=== PATIENT | female | born 1940 | race Caucasian/White ===

== ENCOUNTER 2023-07-24 07:34 | Inpatient (IN) | payer MEDICARE, OTHER ==
[~2023-07-24] VITALS: Ht 172.7 cm; Wt 86.3 kg
[2023-07-24 08:03] LABS: BASO # 0.1 K/mm3 (0.0-0.2); BASO % 0.8 % (0.0-2.0); EOS % 0.5 % (0.0-4.0); GRAN # 3.6 K/mm3 (1.4-6.5); GRAN % 46.5 % (42.2-75.2); HEMATOCRIT 43.2 % (37.0-47.0); HEMOGLOBIN 14.7 g/dl (12.5-16.0); LYMPH # 3.5 K/mm3 (1.2-3.4); LYMPH % 44.8 % (20.0-51.0); MEAN CELL VOLUME 90 fl (80.0-100.0); MEAN CORPUSCULAR HEMOGLOBIN 31 pg (27-31); MEAN CORPUSCULAR HGB CONC 34 g/dl (33.0-37.0); MONO # 0.5 K/mm3 (0.1-0.6); PLATELET COUNT 204 K/mm3 (130-400); REDCELL DISTRIBUTION WIDTH-CV 13.4 % (11.5-14.5)
[2023-07-24 08:10] LABS: INR 2.6 (0.8-3.0); PROTHROMBIN TIME 27.3 SECONDS (9.7-12.8)
[2023-07-24 08:14] LABS: BILIRUBIN,TOTAL 0.5 mg/dL (0.2-1.2); CALCIUM 9.2 mg/dL (8.4-10.2); CREATININE, serum 0.83 mg/dL (0.57-1.11); POTASSIUM 3.9 mmol/L (3.5-4.5)
[2023-07-24 08:20] LABS: TROPONIN-I 0.01 ng/mL (0.00-0.033)
[2023-07-24] MEDS ORDERED: COUMADIN 5MG5 MG/TAB PO (08:53)
[2023-07-24] MEDS ORDERED: PRILOSEC 20MG20 MG PO (08:54)
[2023-07-24] MEDS ORDERED: COUMADIN 1MG1 MG/TAB PO (08:54)
[2023-07-24] MEDS ORDERED: CRESTOR 10MG10 MG PO (08:55)
[2023-07-24] MEDS ORDERED: SYNTHROID0.125 MG/T PO (08:55)
[2023-07-24] MEDS ORDERED: XALATAN EYE DROPS OS (08:56)
[2023-07-24] MEDS ORDERED: PRENATAL TABLET PO (08:57)
[2023-07-24 10:40] VITALS: BP 120/71; PULSE 63; TEMP 98.3
--- NOTE | 2023-07-24 10:40 | NUR ---
Patient to room 306 from the ED by wheelchair. A&Ox4. VSS. IV CDI. Denies pain and discomfort. at the bedside. Nurse oriented the patient to location, call light and room. No further needs expressed. Call light within reach. Patient NPO for possible procedure
[2023-07-24 15:17] VITALS: BP 137/84; PULSE 65; TEMP 97.7
--- NOTE | 2023-07-24 18:40 | NUR ---
awake resting in bed, bedside shift report received from JOHNNY Johnson
[2023-07-24 20:04] VITALS: BP 133/79; PULSE 60; TEMP 98.5
[2023-07-24 20:08] VITALS: BP_SYST 133
--- NOTE | 2023-07-24 20:17 | NUR ---
resting in bed reading a book, full assessment completed, see interventions for further info, denies needs at this time
--- NOTE | 2023-07-24 21:51 | NUR ---
appears to be sleping, in bed with lights on but lying on left side with eyes closed
[2023-07-24 23:24] VITALS: BP 112/62; PULSE 61; TEMP 97.8
[2023-07-24 23:28] VITALS: BP_SYST 112
--- NOTE | 2023-07-24 23:32 | NUR ---
denies pain or needs while awake having VS taken
[2023-07-25] VITALS (17 sets, daily range): BP systolic 83–142; BP diastolic 49–78; PULSE 58–63; TEMP 97.6–98.2
--- NOTE | 2023-07-25 00:50 | NUR ---
appears to be sleeping, CPAP on
--- NOTE | 2023-07-25 02:45 | NUR ---
appears to continue to sleep with CPAP on, resp quiet and easy
--- NOTE | 2023-07-25 05:49 | NUR ---
is awake and resting in bed, states has slept well during the night, is asking about taking a shower this am, BREAD PAN GREASER in to assit her into the shower
[2023-07-25 06:53] LABS: BASO # 0.1 K/mm3 (0.0-0.2); BASO % 1.2 % (0.0-2.0); EOS # 0.1 K/mm3 (0.0-0.7); EOS % 1.1 % (0.0-4.0); GRAN # 3.5 K/mm3 (1.4-6.5); GRAN % 52.4 % (42.2-75.2); HEMATOCRIT 42.9 % (37.0-47.0); HEMOGLOBIN 14.7 g/dl (12.5-16.0); LYMPH # 2.5 K/mm3 (1.2-3.4); MEAN CELL VOLUME 90 fl (80.0-100.0); MEAN CORPUSCULAR HEMOGLOBIN 31 pg (27-31); MEAN CORPUSCULAR HGB CONC 34 g/dl (33.0-37.0); MEAN PLATELET VOLUME 9.2 fl (7.4-10.4); MONO # 0.5 K/mm3 (0.1-0.6); MONO % 7.1 % (1.7-9.3); PLATELET COUNT 208 K/mm3 (130-400); RED BLOOD COUNT 4.78 M/mm3 (4.10-5.30); REDCELL DISTRIBUTION WIDTH-CV 13.2 % (11.5-14.5)
--- NOTE | 2023-07-25 06:57 | NUR ---
bedside shift report given to Evelina Cook RN
[2023-07-25 07:13] LABS: ALBUMIN 3.7 gm/dL (3.4-4.8); CALCIUM 9.1 mg/dL (8.4-10.2); CREATININE, serum 0.79 mg/dL (0.57-1.11); PHOSPHOROUS 3.9 mg/dL (2.3-4.7); POTASSIUM 4.2 mmol/L (3.5-4.5)
[2023-07-25 08:14] LABS: INR 2.2 (0.8-3.0); PROTHROMBIN TIME 23.4 SECONDS (9.7-12.8)
--- NOTE | 2023-07-25 08:42 | NUR ---
PT TAKEN DOWN FOR [facility] AT 0800.
--- NOTE | 2023-07-25 10:17 | NUR ---
Initial visit; Patient and her thanked Labor Commissioner for looking in on her and offering comfort and prayer. Labor Commissioner and "Maria Fernanda" and her Bhavin enjoyed a short visit and it was decided that Labor Commissioner could call their Transition Nurse and let her know Maria Fernanda is here. Labor Commissioner offered God's blessings and later called their Transition Nurse.
--- NOTE | 2023-07-25 16:19 | NUR ---
Lodging House Keeper met with patient to discuss discharge planning. Patient lives in Independent Living on [address] with her , Giovanny (ph#[phone]). Patient sees Dr. Moser at [facility] for primary care. Patient stated she drives herself to appointments but that [facility] is also within walking distance. Patient obtains most medications by mail but also uses [facility] on [address] as needed. Patient uses a CPAP and no other DME. Patient is independent with ADLS and plans to return home at time of discharge. Patient advised her , Giovanny is DPOA-HC. SW contacted Arlene at [facility] to notify her of admission and discharge plan. Discharge Plan: Home (Independent Living)
--- NOTE | 2023-07-25 20:00 | NUR ---
PATIENT AWAKE AND ALERT, RESTING IN BED. PATIENT DENIES ANY NEEDS OR COMPLAINTS AT THIS TIME. CALL [facility] WITHIN REACH.
[2023-07-26 00:43] VITALS: BP_SYST 105
--- NOTE | 2023-07-26 01:30 | NUR ---
PATIENT DENEIS ANY NEEDS OR COMPLAINTS AT THIS TIME. PATIENT UNABLE TO SLEEP BUT STATED SHE DOES NOT WANT ANY SLEEP AID. PATIENTS CALL [facility] WITHIN REACH.
[2023-07-26 03:14] VITALS: BP 113/73; PULSE 59; TEMP 98
[2023-07-26 04:30] VITALS: BP_SYST 113
--- NOTE | 2023-07-26 04:30 | NUR ---
QUYNH CALLED UP TO NURSES STATION. PATIENT STATING SHE IS UPSET BECAUSE "MY DAUGHTERS LEFT HOURS AGO, AND I STILL HAVNT GOT ANY BREKAFAST." PATIENT REORIENTED. PATIENT HAS NOT BEEN LISTENING ALL NIGHT WHEN IT COMES TO COMPLAIANCE WITH L ARM D/T PM INSERTION. QUYNH ASSISTED TO RECLINER, CHAIR ALARM ON, PATIENT CURRENTLY EATING A SNACK. CALL LIGHT SALOM[facility]N REACH
[2023-07-26 06:14] LABS: BASO # 0.1 K/mm3 (0.0-0.2); BASO % 0.7 % (0.0-2.0); EOS # 0.1 K/mm3 (0.0-0.7); EOS % 1.1 % (0.0-4.0); GRAN # 3.8 K/mm3 (1.4-6.5); HEMATOCRIT 42.8 % (37.0-47.0); HEMOGLOBIN 14.7 g/dl (12.5-16.0); LYMPH # 2.7 K/mm3 (1.2-3.4); LYMPH % 37.5 % (20.0-51.0); MEAN CELL VOLUME 90 fl (80.0-100.0); MEAN CORPUSCULAR HEMOGLOBIN 31 pg (27-31); MEAN CORPUSCULAR HGB CONC 34 g/dl (33.0-37.0); MEAN PLATELET VOLUME 9.2 fl (7.4-10.4); MONO # 0.5 K/mm3 (0.1-0.6); MONO % 7.4 % (1.7-9.3); PLATELET COUNT 200 K/mm3 (130-400); RED BLOOD COUNT 4.76 M/mm3 (4.10-5.30); REDCELL DISTRIBUTION WIDTH-CV 13.2 % (11.5-14.5)
[2023-07-26 06:20] LABS: ALBUMIN 3.6 gm/dL (3.4-4.8); CALCIUM 8.9 mg/dL (8.4-10.2); CREATININE, serum 0.77 mg/dL (0.57-1.11); PHOSPHOROUS 3.7 mg/dL (2.3-4.7); POTASSIUM 3.9 mmol/L (3.5-4.5)
[2023-07-26 07:40] VITALS: BP 114/78; PULSE 62; TEMP 97.3
[2023-07-26] MEDS ORDERED: BETAPACE 80MG80 MG PO (07:50)
[2023-07-26 09:20] LABS: INR 1.6 (0.8-3.0); PROTHROMBIN TIME 17.8 SECONDS (9.7-12.8)
--- NOTE | 2023-07-26 09:47 | NUR ---
Follow-up visit; Patient and her thanked Compliance Reviewer for looking in on "Maria Fernanda" before she is discharged today. Patient stated she enjoyed having her Chief Design Drafter visit yesterday and thanked Compliance Reviewer for making the call letting Mother Emerita know she was hospitalized. Compliance Reviewer offered the [place]: Numbers 6:24-26 and wished Maria Fernanda well.
--- NOTE | 2023-07-26 10:58 | NUR ---
Agree with Student Brantleylucie assessment of the patient. Patient A&Ox4. VSS. IV CDI. Denies pain and discomfort. Independent in the room. No further needs expressed. Call light within reach
[2023-07-26 11:11] VITALS: BP 120/72; PULSE 60; TEMP 97.6
[2023-07-26 15:01] VITALS: BP 113/64; PULSE 61; TEMP 97.9
--- NOTE | 2023-07-26 15:12 | NUR ---
Discharge paperwork reviewed with the patient and at the bedside. Patient verbalized an understanding to follow doctors orders. IV removed, tip intact. Gauze and coban applied. No further needs expressed. Patient ambulated independently with to awaiting vehicle.
== END 2023-07-26 15:22 | disposition home or self-care (01) | DRG 310 ==
LOC: COL.ER 07:34 → MEDICAL 09:29
PROVIDERS: Personal Emergency Response Attendant; ADMIT Internal Medicine
DX: I48.0 Paroxysmal atrial fibrillation (principal); E78.5 Hyperlipidemia, unspecified; E89.0 Postprocedural hypothyroidism; G47.33 Obstructive sleep apnea (adult) (pediatric); K21.9 Gastro-esophageal reflux disease without esophagitis; I35.1 Nonrheumatic aortic (valve) insufficiency; Z66 Do not resuscitate; H40.9 Unspecified glaucoma; H40.052 Ocular hypertension, left eye; Z79.890 Hormone replacement therapy; Z95.0 Presence of cardiac pacemaker; Z99.89 Dependence on other enabling machines and devices; Z79.01 Long term (current) use of anticoagulants; Z23 Encounter for immunization
CPT/HCPCS: A9500-JZ; J2785